=== PATIENT | female | born 1980 | race African-American/Black ===

== ENCOUNTER → 2017-03-11 | Outpatient (CLI) | payer SELFPAY ==
--- NOTE | 2017-03-11 19:44 | RADIOLOGY REPORT (SQ) ---
EXAM DESCRIPTION: FOOT RIGHT COMPLETE COMPLETED DATE/TIME: 03/11/2017 7:34 pm REASON FOR STUDY: FOOT PAIN COMPARISON: None. NUMBER OF VIEWS: Three views. TECHNIQUE: AP, lateral and oblique without weight bearing radiographic images acquired of the right foot. LIMITATIONS: None. FINDINGS: MINERALIZATION: Normal. BONES: No acute fracture or dislocation. No worrisome bone lesions. No significant osteophytes. JOINTS: No erosions. No tigre-articular osteopenia. No chondrocalcinosis. SOFT TISSUES: No swelling. No calcifications. OTHER: No other significant finding. IMPRESSION: NEGATIVE STUDY OF THE RIGHT FOOT. NO EXPLANATION FOR PAIN. TECHNICAL DOCUMENTATION: JOB ID: [id number] [employer]- All Rights Reserved
== END ==
LOC: RAD 19:22
PROVIDERS: ATTEND Internal Medicine
DX: M79.671 Pain in right foot (principal)

== ENCOUNTER 2017-03-28 20:45 | Emergency (ER) | payer SELFPAY ==
--- NOTE | 2017-03-28 20:57 | ER Document Report ---
ED Medical Screen (RME) - General Chief Complaint: Abdominal Pain Stated Complaint: ABDOMINAL PAIN,EARACHE Time Seen by Provider: 03/28/17 20:54 Mode of Arrival: Ambulatory Information source: Patient Notes: 36 yo female presents to ed for pain in upper abdominal pain off and on for 3 months, Pain worse today denies nausea or vomiting. Diarrhea a week ago none since. on Depo no period in 7 years. Hx of HTN diovan/ hct. TRAVEL OUTSIDE OF THE [place] IN LAST 30 DAYS: No - Related Data Allergies/Adverse Reactions: No Known Allergies Allergy (Unverified 12/26/10 20:09) Past Medical History - Past Medical History Cardiac Medical History: Reports: Hx Hypertension Past Surgical History: Reports: Hx Section - Immunizations Hx Diphtheria, Pertussis, Tetanus Vaccination: Yes
[2017-03-28] MEDS ORDERED: KETOROLAC TROMETHAMINE 60 MG/2 ML SDV IM ONE (20:58)
[2017-03-28 21:23] LABS: ABSOLUTE EOSINOPHILS # (AUTO) 0.2 10^3/uL (0.0-0.6); ABSOLUTE LYMPHOCYTES (AUTO) 4.2 10^3/uL (0.5-4.7); ABSOLUTE MONOCYTES (AUTO) 0.9 10^3/uL (0.1-1.4); ABSOLUTE NEUT (AUTO) 7.8 10^3/uL (1.7-8.2); BASOPHILS % (AUTO) 0.3 % (0-2); EOSINOPHILS % (AUTO) 1.2 % (0-6); HEMATOCRIT 41.7 % (36.0-47.0); HEMOGLOBIN 14.2 g/dL (12.0-15.5); MEAN CORPUSCULAR HEMOGLOBIN 28.8 pg (27.0-33.4); MEAN CORPUSCULAR HGB CONC 34.1 g/dL (32.0-36.0); MEAN CORPUSCULAR VOLUME 85 fl (80-97); MONOCYTES % (AUTO) 7.2 % (3-13); PLATELET COUNT 279 10^3/uL (150-450); RED BLOOD COUNT 4.94 10^6/uL (3.72-5.28); RED CELL DISTRIBUTION WIDTH 13.4 % (11.5-14.0); SEGMENTED NEUTROPHILS % (AUTO) 59.3 % (42-78); TOTAL CELLS COUNTED % (AUTO) 100 %; WHITE BLOOD COUNT 13.1 10^3/uL (4.0-10.5)
[2017-03-28 21:28] LABS: APPEARANCE,URINE SLIGHTLY-CLOUDY; BILIRUBIN,URINE NEGATIVE (NEGATIVE); COLOR,URINE YELLOW; GLUCOSE, URINE NEGATIVE (NEGATIVE); KETONES,URINE NEGATIVE (NEGATIVE); LEUKOCYTE ESTERASE,URINE NEGATIVE (NEGATIVE); NITRITE,URINE NEGATIVE (NEGATIVE); PROTEIN,URINE 30 mg/dL (NEGATIVE); URINE SPECIFIC GRAVITY 1.034
[2017-03-28 21:45] LABS: ALANINE AMINOTRANSFERASE 35 U/L (9-52); ALBUMIN 4.7 g/dL (3.5-5.0); ALKALINE PHOSPHATASE 72 U/L (38-126); ANION GAP 12 (5-19); ASPARTATE AMINO TRANSFERASE 22 U/L (14-36); BILIRUBIN,DIRECT 0.1 mg/dL (0.0-0.4); BILIRUBIN,TOTAL 0.4 mg/dL (0.2-1.3); BLOOD UREA NITROGEN 17 mg/dL (7-20); CALCIUM 9.7 mg/dL (8.4-10.2); CARBON DIOXIDE 28 mmol/L (22-30); CHLORIDE 103 mmol/L (98-107); GLUCOSE 89 mg/dL (75-110); LIPASE 62.2 U/L (23-300); POTASSIUM 3.9 mmol/L (3.6-5.0); SODIUM 142.8 mmol/L (137-145); TOTAL PROTEIN 7.3 g/dL (6.3-8.2)
--- NOTE | 2017-03-28 21:55 | RADIOLOGY REPORT (SQ) ---
EXAM DESCRIPTION: U/S ABDOMEN LIMITED W/O DOP COMPLETED DATE/TIME: 03/28/2017 9:46 pm REASON FOR STUDY: right upper quad abdominal pain COMPARISON: None. TECHNIQUE: Dynamic and static grayscale images acquired of the abdomen and recorded on PACS. Additio nal selected color Doppler and spectral images recorded. LIMITATIONS: Study limited due to the patient's obesity and overlying bowel gas. FINDINGS: PANCREAS: Not visualized. LIVER: Echotexture is coarse with increased echogenicity consistent with fatty infiltration. LIVER VASCULATURE: Normal directional flow of the main portal vein and hepatic veins. GALLBLADDER: No stones. Normal wall thickness. No pericholecystic fluid. ULTRASOUND-DETECTED ROMANO'S SIGN: Negative. INTRAHEPATIC DUCTS AND COMMON DUCT: CBD and intrahepatic ducts normal caliber. No filling defects. INFERIOR VENA CAVA: Normal flow. AORTA: Incompletely visualized. RIGHT KIDNEY: Normal size. Normal echogenicity. No solid or suspicious masses. No hydronephrosis. No calcifications. PERITONEAL AND RIGHT PLEURAL SPACE: No ascites or effusions. OTHER: No other significant finding. IMPRESSION: LIMITED IMAGES. FATTY INFILTRATION OF THE LIVER. OTHERWISE UNREMARKABLE RIGHT UPPER QU ADRANT ULTRASOUND. TECHNICAL DOCUMENTATION: JOB ID: [id number] [employer]- All Rights Reserved
[2017-03-28] MEDS ORDERED: MAG HYDROX/AL HYDROX/SIMETH SUSP 30 ML UDCUP PO ONE (23:49)
[2017-03-28] MEDS ORDERED: LIDOCAINE 2% VISCOUS SOLN 20 ML UDCUP PO ONE (23:49)
[2017-03-28] MEDS ORDERED: FAMOTIDINE 20 MG TABLET PO ONE (23:49)
[2017-03-28] MEDS ORDERED: METOCLOPRAMIDE HCL ORAL SOLN 10 MG/10 ML UDCUP PO ONE (23:49)
--- NOTE | 2017-03-29 00:03 | ER Document Report ---
ED General - General Chief Complaint: Abdominal Pain Stated Complaint: ABDOMINAL PAIN,EARACHE Time Seen by Provider: 03/28/17 20:54 Mode of Arrival: Ambulatory Notes: Patient is a 36-year-old female without past medical history, no prior abdominal surgeries, who presents with several months of epigastric abdominal pain. Patient reports a dull, aching pain to her upper abdomen that has been intermittent over the last several months but became acutely worse in the past several days. Patient states after drinking a soda today she had an acute worsening of the pain. She has nausea without vomiting in association with her pain. She has not tried anything to improve her symptoms. She notes that she has not really ate or drank since this morning due to the pain and she notes that this often worsens her symptoms. She has not followed with her primary doctor regarding today's concerns. She denies any melena, hematochezia or hematemesis. No fever or constitutional symptoms. TRAVEL OUTSIDE OF THE [place] IN LAST 30 DAYS: No - Related Data Allergies/Adverse Reactions: No Known Allergies Allergy (Unverified 12/26/10 20:09) Past Medical History - General Information source: Patient - Social History Smoking Status: Never Smoker Chew tobacco use (# tins/day): No Frequency of alcohol use: None Drug Abuse: None Lives with: Family Family History: Reviewed & Not Pertinent Patient has suicidal ideation: No Patient has homicidal ideation: No - Past Medical History Cardiac Medical History: Reports: Hx Hypertension Renal/ Medical History: Denies: Hx Peritoneal Dialysis Past Surgical History: Reports: Hx Section - Immunizations Hx Diphtheria, Pertussis, Tetanus Vaccination: Yes Review of Systems - Review of Systems Notes: Constitutional: Negative for fever. HENT: Negative for sore throat. Eyes: Negative for visual changes. Cardiovascular: Negative for chest pain. Respiratory: Negative for shortness of breath. Gastrointestinal: Positive for abdominal pain Genitourinary: Negative for dysuria. Musculoskeletal: Negative for back pain. Skin: Negative for rash. Neurological: Negative for headaches, weakness or numbness. 10 point ROS negative except as marked above and in HPI. Physical Exam - Vital signs Vitals: Temp Pulse Resp BP Pulse Ox 98.0 F 111 H 18 161/110 H 97 03/28/17 20:54 03/28/17 20:54 03/28/17 20:54 03/28/17 20:54 03/28/17 20:54 Interpretation: Tachycardic Notes: PHYSICAL EXAMINATION: GENERAL: Well-appearing, well-nourished and in no acute distress. HEAD: Atraumatic, normocephalic. EYES: Pupils equal round and reactive to light, extraocular movements intact, sclera anicteric, conjunctiva are normal. ENT: nares patent, oropharynx clear without exudates. Dry mucous membranes. NECK: Normal range of motion, supple without lymphadenopathy LUNGS: Breath sounds clear to auscultation bilaterally and equal. No wheezes rales or rhonchi. HEART: Regular rate and rhythm without murmurs ABDOMEN: Soft, focal epigastric abdominal pain no otherwise localized areas of tenderness, normoactive bowel sounds. No guarding, no rebound. No masses appreciated. EXTREMITIES: Normal range of motion, no pitting or edema. No cyanosis. NEUROLOGICAL: No focal neurological deficits. Moves all extremities spontaneously and on command. PSYCH: Normal mood, normal affect. SKIN: Warm, Dry, normal turgor, no rashes or lesions noted. Course - Re-evaluation Re-evalutation: 03/29/17 00:02 Patient presents with epigastric abdominal pain with associated reflux symptoms most consistent with likely gastritis. Patient has no focal abdominal tenderness on examination except to the epigastrum. Right upper quadrant ultrasound does not demonstrate any evidence of acute cholecystitis or cholelithiasis. Lipase is normal. No LFT changes. Based on history and exam, I do not suspect ACS, pulmonary embolus, SBO, mesenteric ischemia, acute pancreatitis, biliary pathology, or an abdominal aortic dissection. Patient has had improvement of symptoms here with a GI cocktail. Vitals initially showed tachycardia and patient was quite dehydrated with an elevated urine specific gravity. She was noted to be orthostatic at the bedside by vitals. After receiving oral fluids she did have resolution of her tachycardia. At this time will discharge with return precautions and follow-up recommendations. Verbal discharge instructions given a the bedside and opportunity for questions given. Medication warnings reviewed. Patient is in agreement with this plan and has verbalized understanding of return precautions and the need for primary care follow-up in the next 24-72 hours. - Vital Signs Vital signs: Temp Pulse Resp BP Pulse Ox 97.6 F 98 23 H 146/93 H 96 03/29/17 00:01 03/29/17 00:01 03/29/17 00:01 03/29/17 00:01 03/29/17 00:01 - Laboratory Result Diagrams: 03/28/17 21:00 03/28/17 21:00 Laboratory results interpreted by me: 03/28/17 03/28/17 03/28/17 21:00 21:00 21:00 WBC 13.1 H Est GFR (Non-Af Amer) 54 L Urine Protein 30 H Urine Urobilinogen 4.0 H - Diagnostic Test Radiology reviewed: Reports reviewed Discharge - Discharge Clinical Impression: Epigastric abdominal pain, Nausea, Dehydration Condition: Good Disposition: HOME, SELF-CARE Additional Instructions: Your symptoms appear to be most consistent with stomach or upper intestinal irritation. Please begin taking famotidine 40 mg in the morning and 40 mg at night. This medicine can be purchased directly [id number]. You may also take medicine such as Pepto-Bismol or Tums to assist with your pain. Please return to emergency department immediately if you have worsening of your pain, shortness of breath, vomiting, become unable to exert yourself due to pain or difficulty breathing, you pass out, or have any pain that radiates into your arms, jaw, or back. Please also return if you have any additional symptoms that are concerning to you. Prescriptions: Sucralfate [Carafate 1 gm Tablet] 1 gm PO ACHS #120 tablet Referrals: LESLIE KING MD [Primary Care Provider] - Follow up as needed
[2017-03-29 00:29] VITALS: BP 146/93
== END 2017-03-29 00:32 | disposition home or self-care (01) ==
LOC: ER 20:45
DX: R10.13 Epigastric pain (principal); R11.0 Nausea; E86.0 Dehydration; R00.0 Tachycardia, unspecified; I10 Essential (primary) hypertension
CPT/HCPCS: 99284; 96372; 36415; 83690; 84703; 85025; 80053; 81001; 76705; J1885; J3490

== ENCOUNTER 2020-01-06 17:21 | Emergency (ER) | payer SELFPAY ==
[2020-01-06 17:44] VITALS: BP 167/103
[2020-01-06] MEDS ORDERED: HYDROCODONE/ACETAMINOPHEN 5-325 MG TABLET PO ONE (17:58)
--- NOTE | 2020-01-06 17:58 | ER Document Report ---
ED Medical Screen (RME) - General Chief Complaint: Leg Pain Stated Complaint: RIGHT LEG PAIN Time Seen by Provider: 01/06/20 17:52 Primary Care Provider: JOSSELYN RODARTE MD [Primary Care Provider] - Follow up as needed Notes: Patient is a 39-year-old -[place] female coming in today with atraumatic pain in the bilateral lower extremities right greater than left. Does not remember any specific injury to this area. No previous problems with any of her joints. No previous surgeries. She denies chest pain or shortness of breath. General exam no acute distress Musculoskeletal diffuse bilateral peripatellar tenderness. No deformity. Tenderness to calf squeeze bilaterally. I have greeted and performed a rapid initial assessment of this patient. A comprehensive ED assessment and evaluation of the patient, analysis of test results and completion of the medical decision making process will be conducted by additional ED providers. TRAVEL OUTSIDE OF THE [place] IN LAST 30 DAYS: No - Related Data Allergies/Adverse Reactions: No Known Allergies Allergy (Unverified 12/26/10 20:09) Home Medications: Micardis, HCTZ Past Medical History - Social History Frequency of alcohol use: None Drug Abuse: None - Past Medical History Cardiac Medical History: Reports: Hx Hypertension Renal/ Medical History: Denies: Hx Peritoneal Dialysis Past Surgical History: Reports: Hx Section - Immunizations Hx Diphtheria, Pertussis, Tetanus Vaccination: Yes Physical Exam - Vital signs Vitals: Temp Pulse Resp BP Pulse Ox 98.1 F 97 20 167/103 H 100 01/06/20 17:43 01/06/20 17:43 01/06/20 17:43 01/06/20 17:43 01/06/20 17:43 Course - Vital Signs Vital signs: Temp Pulse Resp BP Pulse Ox 98.1 F 97 20 167/103 H 100 01/06/20 17:43 01/06/20 17:43 01/06/20 17:43 01/06/20 17:43 01/06/20 17:43 Doctor's Discharge - Discharge Referrals: JOSSELYN RODARTE MD [Primary Care Provider] - Follow up as needed
--- NOTE | 2020-01-06 18:49 | RADIOLOGY REPORT (SQ) ---
EXAM DESCRIPTION: KNEE BILATERAL 1-2 VIEWS IMAGES COMPLETED DATE/TIME: 01/06/2020 6:35 pm REASON FOR STUDY: pain COMPARISON: None. NUMBER OF VIEWS: Two views. TECHNIQUE: AP and lateral radiographic images acquired of the right and left knee. LIMITATIONS: None. FINDINGS: MINERALIZATION: Normal. BONES: No acute fracture or dislocation. No worrisome bone lesions. No significant osteophytes. JOINT: No effusion. No chondrocalcinosis. OTHER: No other significant finding. IMPRESSION: NEGATIVE STUDY OF THE RIGHT AND LEFT KNEES. NO EXPLANATION FOR PAIN. TECHNICAL DOCUMENTATION: JOB ID: [id number] 2010 [employer]- All Rights Reserved Reading location - [facility]workstation [facility]: [email or web address]
[2020-01-06 18:50] LABS: ABSOLUTE BASOPHILS # (AUTO) 0.1 10^3/uL (0.0-0.2); ABSOLUTE EOSINOPHILS # (AUTO) 0.2 10^3/uL (0.0-0.6); ABSOLUTE LYMPHOCYTES (AUTO) 2.9 10^3/uL (0.5-4.7); ABSOLUTE MONOCYTES (AUTO) 0.7 10^3/uL (0.1-1.4); ABSOLUTE NEUT (AUTO) 7.4 10^3/uL (1.7-8.2); BASOPHILS % (AUTO) 0.5 % (0-2); EOSINOPHILS % (AUTO) 1.4 % (0-6); HEMATOCRIT 36.2 % (36.0-47.0); HEMOGLOBIN 12.4 g/dL (12.0-15.5); LYMPHOCYTES % (AUTO) 25.7 % (13-45); MEAN CORPUSCULAR HEMOGLOBIN 29.7 pg (27.0-33.4); MEAN CORPUSCULAR HGB CONC 34.4 g/dL (32.0-36.0); MEAN CORPUSCULAR VOLUME 87 fl (80-97); MONOCYTES % (AUTO) 6.2 % (3-13); PLATELET COUNT 269 10^3/uL (150-450); RED BLOOD COUNT 4.18 10^6/uL (3.72-5.28); SEGMENTED NEUTROPHILS % (AUTO) 66.2 % (42-78); TOTAL CELLS COUNTED % (AUTO) 100 %; WHITE BLOOD COUNT 11.2 10^3/uL (4.0-10.5)
[2020-01-06 19:06] LABS: ALKALINE PHOSPHATASE 73 U/L (38-126); ANION GAP 9 (5-19); ASPARTATE AMINO TRANSFERASE 24 U/L (14-36); BILIRUBIN,DIRECT 0.1 mg/dL (0.0-0.4); BILIRUBIN,TOTAL 0.5 mg/dL (0.2-1.3); BLOOD UREA NITROGEN 13 mg/dL (7-20); CARBON DIOXIDE 24 mmol/L (22-30); CHLORIDE 106 mmol/L (98-107); CREATINE KINASE 192 U/L (30-135); GLUCOSE 92 mg/dL (75-110); POTASSIUM 3.8 mmol/L (3.6-5.0); TOTAL PROTEIN 6.8 g/dL (6.3-8.2)
--- NOTE | 2020-01-06 21:01 | RADIOLOGY REPORT (SQ) ---
US LOWER EXTREMITY VEINS HISTORY: Leg pain and swelling. COMPARISON: None. TECHNIQUE: Yusuf-scale, color Doppler and spectral Doppler images of the bilateral lower extremity veins were obtained. FINDINGS: The bilateral common femoral, superficial femoral and popliteal veins are patent and compressible. Normal augmentation and color Doppler blood flow in the aforementioned veins. The visualized calf veins are also patent. Diffuse subcutaneous edema is present. IMPRESSION: No DVT in the bilateral lower extremities.
--- NOTE | 2020-01-06 23:01 | ER Document Report ---
ED General - General Chief Complaint: Leg Pain Stated Complaint: RIGHT LEG PAIN Time Seen by Provider: 01/06/20 17:52 Primary Care Provider: JOSSELYN RODARTE MD [Primary Care Provider] - Follow up as needed Mode of Arrival: Ambulatory Information source: Parent Notes: 39-year-old -[place] female coming in today with bilateral lower extremity pain right greater than left. No trauma. No chronic medical problems. TRAVEL OUTSIDE OF THE [place] IN LAST 30 DAYS: No - Related Data Allergies/Adverse Reactions: No Known Allergies Allergy (Unverified 12/26/10 20:09) Home Medications: Micardis, HCTZ Past Medical History - Social History Smoking Status: Never Smoker Frequency of alcohol use: None Drug Abuse: None Family History: Reviewed & Not Pertinent - Past Medical History Cardiac Medical History: Reports: Hx Hypertension Renal/ Medical History: Denies: Hx Peritoneal Dialysis Past Surgical History: Reports: Hx Section - Immunizations Hx Diphtheria, Pertussis, Tetanus Vaccination: Yes Review of Systems - Review of Systems Notes: Constitutional: No fevers. No chills. EENT: No eye redness. No eye pain. No ear pain. No sore throat. Cardiovascular: No chest pain. No palpitations. Respiratory: No cough. No shortness of breath. No respiratory distress. Gastrointestinal: No abdominal pain. No nausea, vomiting, or diarrhea. Genitourinary: Atraumatic. No lesions. No pain. No discharge. Musculoskeletal: Bilateral lower extremity pain Skin: No rash or lesions. Lymphatic: No swollen lymph nodes. Neurologic: No headache. No syncope. Psychiatric: No suicidal or homicidal ideation. Physical Exam - Vital signs Vitals: Temp Pulse Resp BP Pulse Ox 98.1 F 97 20 167/103 H 100 01/06/20 17:43 01/06/20 17:43 01/06/20 17:43 01/06/20 17:43 01/06/20 17:43 - Notes Notes: General: Well-developed, well-nourished. In no acute distress. Non-toxic appearing. Cardiac: Well-perfused. Regular rate and rhythm. No murmurs, rubs, or gallops. Pulmonary: No respiratory distress. No cyanosis. Bilateral lung fiels are clear to auscultation. Abdominal: Non-distended. Non-rigid. Bowels sounds are present in all four quadrants. No guarding or rebound. HEENT: Head is atraumatic. Conjunctivae not reddened. No tearing. PERRL. EOMI. Orbits atraumatic. No periorbital swelling or erythema. Oropharynx is without erythema, swelling, or exudates. Neck: Supple. No adenopathy. No meningismus. Dermatologic: Warm with good turgor. No rash. Atraumatic. Chest: Atraumatic. No chest wall tenderness to palpation. Musculoskeletal: Tenderness to palpation of the muscles of the bilateral thighs, posterior knees, and calves. No swelling. No redness. No heat.. Genitourinary: Examination deferred Neurologic: No gross neurologic deficits. Psychiatric: Normal mood. Course - Re-evaluation Re-evalutation: 01/06/20 23:00 X-rays negative. Doppler ultrasounds negative. No signs of rhabdo. No electrolyte abnormalities. - Vital Signs Vital signs: Temp Pulse Resp BP Pulse Ox 98.1 F 97 20 167/103 H 100 01/06/20 17:43 01/06/20 17:43 01/06/20 17:43 01/06/20 17:43 01/06/20 17:43 - Laboratory Result Diagrams: 01/06/20 18:04 01/06/20 18:04 Laboratory results interpreted by me: 01/06/20 01/06/20 18:04 18:04 WBC 11.2 H Creatine Kinase 192 H - Diagnostic Test Radiology reviewed: Reports reviewed Discharge - Discharge Clinical Impression: Bilateral lower extremity pain, Myalgia Condition: Good Disposition: HOME, SELF-CARE Instructions: Myalagia (Muscle Pain) ([facility]) Prescriptions: Hydrocodone/Acetaminophen [[place] 10-325 Tablet] 1 each PO Q6HP PRN #10 tablet PRN Reason: Methylprednisolone [Medrol Dosepack (4 mg/Tab) 21 Tab/Dosepak] 4 mg PO ASDIR PRN #21 tab.ds.pk PRN Reason: Referrals: JOSSELYN RODARTE MD [Primary Care Provider] - Follow up as needed
== END 2020-01-06 23:17 | disposition home or self-care (01) ==
LOC: ER 17:21
DX: M79.604 Pain in right leg (principal); M79.605 Pain in left leg; M79.10 Myalgia, unspecified site; I10 Essential (primary) hypertension; Z79.899 Other long term (current) drug therapy
CPT/HCPCS: 36415; 80053; 82550; 83735; 85025; 93970; 99285

== ENCOUNTER 2020-03-05 13:43 | Emergency (ER) | payer BC ==
[2020-03-05 14:04] VITALS: BP 151/101
[2020-03-05] MEDS ORDERED: LIDOCAINE 1% INJ (10 MG/ML) 10 ML MDV INJ ONE (14:22)
[2020-03-05] MEDS ORDERED: BUPIVACAINE HCL 0.5 % INJ/PF 30 ML SDV INJ ONE (14:22)
--- NOTE | 2020-03-05 14:27 | ER Document Report ---
ED Oral Problem - General Chief Complaint: Toothache Stated Complaint: TOOTH PAIN/FACIAL PAIN Time Seen by Provider: 03/05/20 14:17 Mode of Arrival: Ambulatory Information source: Patient TRAVEL OUTSIDE OF THE [place] IN LAST 30 DAYS: No - HPI Patient complains to provider of: Toothache Notes: Patient here with complaints of left lower dental pain. She states that she has had a cracked tooth for last several weeks. She states that over the last few days the pain has gotten much worse. She saw a dentist who told her that she needs to have a root canal done but they cannot get her in for a few months. Pain has gotten progressively worse and nothing seems to be helping. Pain is constant, moderate to severe worse with eating. She denies fever. No swelling. No difficulty breathing or swallowing. No chest pain or shortness of breath. No abdominal pain. No nausea, vomiting, diarrhea. No rash. No injury. No severe headache. The pain radiates into her left ear. No other complaints at this time. - Related Data Allergies/Adverse Reactions: hydrocodone Adverse Reaction (Verified 03/05/20 14:15) Home Medications: bp medication losartan/hctz Past Medical History - Social History Smoking Status: Never Smoker Chew tobacco use (# tins/day): No Frequency of alcohol use: None Drug Abuse: None Family History: Reviewed & Not Pertinent Patient has homicidal ideation: No - Past Medical History Cardiac Medical History: Reports: Hx Hypertension Renal/ Medical History: Denies: Hx Peritoneal Dialysis Past Surgical History: Reports: Hx Section - Immunizations Hx Diphtheria, Pertussis, Tetanus Vaccination: Yes Review of Systems - Review of Systems -: Yes All other systems reviewed and negative Physical Exam - Vital signs Vitals: Temp Pulse Resp BP Pulse Ox 98.4 F 102 H 16 151/101 H 98 03/05/20 14:03 03/05/20 14:03 03/05/20 14:03 03/05/20 14:03 03/05/20 14:03 - Notes Notes: GENERAL: alert, cooperative, nontoxic, no distress. HEAD: normocephalic, atraumatic EYES: conjunctiva pink without discharge, no external redness or swelling. EARS: no external swelling, no external redness, no mastoid redness, swelling, t enderness. Ear canals are clear without swelling or drainage. TMs pearly sparks, no redness, no bulging, normal landmarks, no perforation. NOSE: atraumatic, no external swelling. clear rhinorrhea noted. MOUTH/THROAT: mucous membranes moist and pink, posterior pharynx without erythema, swelling, exudate. No trismus or drooling. Voice is normal, no stridor. Left lower first bicuspid with small crack noted. There is no gum swelling, sublingual swelling or induration. No drainable abscess. NECK: soft, supple, full range of motion, no meningismus. CHEST: no distress, lungs clear and equal throughout. No wheezing, rales, rhonchi. CARDIAC: regular rate and rhythm, no murmur EXTREMITIES: full range of motion of all extremities. No redness, no swelling. NEURO: alert and oriented A&O3, no focal deficits, full range of motion of all extremities. PYSCH: appropriate mood, affect. Patient is cooperative. SKIN: pink, warm, dry, no rash. Course - Re-evaluation Re-evalutation: 03/05/20 14:32 Patient nontoxic-appearing stable vitals. Here with complaints of left lower dental pain. Patient noted to have a fractured tooth that she was told by dentist she needs a root canal on. No drainable abscess. No sublingual swelling or induration, no sign of Shyam's angina. Patient will be given a dental block with lidocaine and bupivacaine, will be discharged home with a prescription for Pen-Vee K and NSAIDs with instructions to follow-up with her dentist at the next available appointment. Follow-up sooner for worsening pain, high fever, persistent vomiting, difficulty breathing or swallowing, or any further concerns. The patient's emergency department workup and current diagnosis were explained to the patient and or family. Follow-up instructions were provided. Medications if prescribed were discussed. Instructions for when to return to the emergency department including specific worrisome symptoms were discussed with the patient and/or family. 03/05/20 14:34 Mental dental block performed with lidocaine and Marcaine. Patient alert procedure well with no immediate complications. - Vital Signs Vital signs: Temp Pulse Resp BP Pulse Ox 98.4 F 102 H 16 151/101 H 98 03/05/20 14:03 03/05/20 14:03 03/05/20 14:03 03/05/20 14:03 03/05/20 14:03 - Laboratory Results Critical Laboratory Results Reviewed: No Critical Results - Radiology Results Critical Radiology Results Reviewed: No Critical Results Discharge - Discharge Clinical Impression: Pain, dental Condition: Stable Disposition: HOME, SELF-CARE Instructions: [facility], Toothache ([facility]) Additional Instructions: Take medication as prescribed. Drink plenty fluids. You may also take at 1000 mg of Tylenol every 6 hours as needed for pain. Follow-up with your dentist at the next available appointment. Follow-up sooner for worsening pain, fever, swelling, difficulty breathing or swallowing, or any further concerns. Prescriptions: Penicillin V Potassium [Penicillin Vk 500 mg Tablet] 500 mg PO BID #20 tablet Diclofenac Sodium [Voltaren 50 Mg Tablet.] 50 mg PO BID #20 tablet. Referrals: [facility] [Provider Group] - Follow up as needed [facility] [Provider Group] - Follow up as needed
== END 2020-03-05 14:42 | disposition home or self-care (01) ==
LOC: ER 13:43
DX: K08.9 Disorder of teeth and supporting structures, unspecified (principal); R51.9 Headache, unspecified; I10 Essential (primary) hypertension; Z88.6 Allergy status to analgesic agent
CPT/HCPCS: 99283; 64400; J3490